=== PATIENT | female | born 1950 | race Caucasian/White ===

== ENCOUNTER 2016-12-29 10:00 | Emergency (ER) | payer BC, OTHER ==
[2016-12-29 10:08] VITALS: BP 153/94; PULSE 87; TEMP 99.1; BMI 27.4
--- NOTE | 2016-12-29 11:03 | PDOC ---
History of Present Illness - General Chief Complaint: Injury Stated Complaint: RT ANKLE, RT LOWER LEG PAIN, BRUISING Time Seen by Provider: 12/29/16 10:06 History Source: Patient Exam Limitations: No Limitations - History of Present Illness Initial Comments: 12/29/16 10:58 66 yo F no pmhx here with c/o right ankle eccymosis. had injury 3 days ago, banged her ankle while cleaning. now having severe bruising and swelling. ambulating without difficult. pain controlled with ibuprofen 200. no hip or knee pain. has had prior wound on ankle as a child and has skin scarring there, no hardward or bony surgeries. Past History - Past Medical History Allergies/Adverse Reactions: Allergies Allergy/AdvReac Type Severity Reaction Status Date / Time No Known Allergies Allergy Verified 12/29/16 10:03 Home Medications: Ambulatory Orders Ibuprofen [Advil -] 400 mg PO ASDIR 12/29/16 - Suicide/Smoking/Psychosocial Hx Smoking History: Never smoked Have you smoked in the past 12 months: No Hx Alcohol Use: (wine nightly) Substance Use Type: None Review of Systems - Review of Systems Constitutional: No: Chills, Diaphoresis HEENTM: No: Blurred Vision Respiratory: No: Cough, Orthopnea Cardiac (ROS): No: Chest Pain, Edema Musculoskeletal: Yes: Joint Pain. No: Back Pain, Gout Integumentary: Yes: Bruising. No: Change in Color All Other Systems: Reviewed and Negative *Physical Exam - Vital Signs Last Vital Signs Temp Pulse Resp BP Pulse Ox 99.1 F 87 18 153/94 97 12/29/16 10:00 12/29/16 10:00 12/29/16 10:00 12/29/16 10:00 12/29/16 10:00 - Physical Exam General Appearance: Yes: Appropriately Dressed Neck: positive: Trachea midline Respiratory/Chest: positive: Lungs Clear, Normal Breath Sounds Cardiovascular: positive: Regular Rhythm, Regular Rate, S1, S2. negative: Edema Musculoskeletal: positive: Normal Inspection, Other (mild medial ankle, lower tibial ttp with eccymosis, visible hematoma. FROM at ankle knee and hip. ) Extremity: positive: Normal Capillary Refill Integumentary: positive: Normal Color, Dry, Warm, Ecchymosis (right medial ankle lower limb) ED Treatment Course - RADIOLOGY Radiology Studies Ordered: Category Date Time Status ANKLE-RIGHT [RAD] Stat Radiology 12/29/16 10:29 Completed Medical Decision Making - Medical Decision Making 12/29/16 11:01 pt ambulating wihtout difficulty. brittneeley contusion with hematoma formation. not taking any blood thinners. xray r/o fx. pain control as needed,. dc *DC/Admit/Observation/Transfer Diagnosis at time of Disposition: Hematoma - Discharge Dispostion Disposition: HOME Condition at time of disposition: Improved - Referrals Referrals: Gregorio Krishna MD [Staff Physician] - - Patient Instructions Printed Discharge Instructions: DI for Hematoma (Bruise) Additional Instructions: you can elevate leg to reduce swelling. wrap with bryn bandage to help compress swelling. ice and elevate. your xrays are negative for fracture, meaning no broken bones. follow up with a orthopedist as needed for persistant pain. you can walk on it as tolerated. take motrin 400 mg every 8 hours as needed for pain.
== END 2016-12-29 11:20 | disposition home or self-care (01) ==
LOC: FER 10:00
DX: S90.01XA Contusion of right ankle, initial encounter (principal); W22.01XA Walked into wall, initial encounter; Y93.89 Activity, other specified; Y92.9 Unspecified place or not applicable
CPT/HCPCS: 73610-TC-RT; 99282-25

== ENCOUNTER 2021-02-20 17:04 | Emergency (ER) | payer OTHER ==
[2021-02-20 18:27] VITALS: BP 136/68; TEMP 98.4; BMI 27.4
[2021-02-20 18:55] VITALS: PULSE 92
== END 2021-02-20 22:34 | disposition home or self-care (01) ==
LOC: JER 17:04
DX: U07.1 COVID-19 (principal); R05.9 Cough, unspecified
CPT/HCPCS: 71046-TC-FY; 99284-25

== ENCOUNTER 2023-09-06 18:04 | Emergency (ER) | payer OTHER ==
[2023-09-06 18:23] VITALS: PULSE 83; RESP 18; TEMP 98; BMI 25.8
[2023-09-06 18:38] VITALS: BP 170/88
== END 2023-09-06 18:41 | disposition home or self-care (01) ==
LOC: FER 18:04
DX: L25.9 Unspecified contact dermatitis, unspecified cause (principal); R21 Rash and other nonspecific skin eruption; L29.9 Pruritus, unspecified
CPT/HCPCS: 99283-25